=== PATIENT | female | born 1935 | race Caucasian/White ===

== ENCOUNTER 2021-02-18 11:29 | Observation (INO) ==
--- NOTE | 2021-02-18 12:06 | Emergency Department Note ---
History of Present Illness General Chief complaint: Infection, Wound Stated complaint: cellulitis Time Seen by Provider: 02/18/21 11:46 Source: patient and old records reviewed Mode of arrival: EMS Limitations: no limitations History of Present Illness This patient is an 86-year-old female who was sent over for evaluation for possible cellulitis. She was treated for left leg cellulitis with Keflex and despite that both legs are now red. The patient does have some dementia according to chart but denies any complaints. Denies trauma. Her legs do seem to hurt on exam. Denies chest pain or shortness of breath or abdominal pain. No fever chills or cough. Home Medications Medication Instructions Recorded Confirmed Type aspirin 81 mg PO QAM 09/20/19 02/18/21 History donepezil [Aricept] 5 mg PO QAM 09/20/19 02/18/21 History losartan 50 mg PO QAM 09/20/19 02/18/21 History memantine [Namenda] 5 mg PO QAM 09/20/19 02/18/21 History cephalexin [Keflex] 250 mg PO TID 02/18/21 02/18/21 History loperamide [Anti-Diarrheal 2 mg PO Q4H PRN 02/18/21 02/18/21 History (loperamide)] lorazepam 1 mg PO Q6H PRN 02/18/21 02/18/21 History Allergies Allergy/AdvReac Type Severity Reaction Status Date / Time Sulfa (Sulfonamide Allergy Mild HIVES, Verified 02/18/21 13:12 Antibiotics) INTESTINAL PAIN alendronate sodium Allergy Unknown Verified 02/18/21 13:12 atorvastatin Allergy Unknown Verified 02/18/21 13:12 clarithromycin Allergy Unknown Verified 02/18/21 13:12 colesevelam Allergy Unknown Verified 02/18/21 13:12 ezetimibe Allergy Unknown Verified 02/18/21 13:12 gemfibrozil Allergy Unknown Verified 02/18/21 13:12 levofloxacin Allergy Unknown HIVES Verified 02/18/21 13:12 lisinopril Allergy Unknown Verified 02/18/21 13:12 Quinolones Allergy Unknown Verified 02/18/21 13:12 risedronate sodium Allergy Unknown Verified 02/18/21 13:12 simvastatin Allergy Unknown Verified 02/18/21 13:12 Past Med/Surg History Medical History Dementia DJD (degenerative joint disease) History of abnormal electrocardiogram History of pneumonia History of recurrent UTI (urinary tract infection) HLD (hyperlipidemia) HTN (hypertension) Left cataract Myalgia Right cataract Surgical History History of bronchoscopy History of hip replacement Family History Other Family history unobtainable Social History Smoking Status: Former smoker Hx Alcohol Use: No Hx Substance Use: No Preferred Language: Azeri Communication Ability: Effective Crushing 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 Required: No Beliefs That Will Affect Care: Hoahaoism Hoahaoism Beliefs: Congregation marital status: Current Living Situation: Residential Other Information That Helps Us Care for You: No Feels Safe at Home: Yes Safety Concerns: Afraid for Self Assistive Devices: Glasses, Hearing Aid - Bilateral and Walker Review of Systems Unobtainable due to cognitive status (She seems answers questions appropriately but vaguely and due to her dementia is unable to give a reliable review of systems) Physical Exam Vital Signs Vital Signs - 24 hr 02/18/21 16:32 02/18/21 16:33 02/18/21 17:00 Temperature Temperature Source Pulse Rate 67 Pulse Rate [Finger] Pulse Rate from SpO2 Sensor 69 66 65 Respiratory Rate 20 20 18 Blood Pressure 163/102 H Blood Pressure [Right Arm] Blood Pressure Mean 122 Blood Pressure Mean [Right Arm] Blood Pressure Position [Right Arm] Pulse Oximetry 96 95 95 Oxygen Delivery Method 02/18/21 17:01 02/18/21 17:31 02/18/21 22:33 Temperature 37.3 C Temperature Source Oral Pulse Rate 66 Pulse Rate [Finger] 73 Pulse Rate from SpO2 Sensor 68 66 Respiratory Rate 20 22 17 Blood Pressure 162/56 H 168/77 H Blood Pressure [Right Arm] 144/71 H Blood Pressure Mean 91 107 Blood Pressure Mean [Right Arm] 95 Blood Pressure Position [Right Arm] Lying Pulse Oximetry 95 95 92 Oxygen Delivery Method Room Air 02/19/21 08:23 Temperature 36.8 C Temperature Source Oral Pulse Rate Pulse Rate [Finger] 64 Pulse Rate from SpO2 Sensor Respiratory Rate 18 Blood Pressure Blood Pressure [Right Arm] 161/74 H Blood Pressure Mean Blood Pressure Mean [Right Arm] 103 Blood Pressure Position [Right Arm] Semi-fowlers Pulse Oximetry 93 Oxygen Delivery Method Room Air General: Well developed well nourished older female who appears in no acute distress, breathing comfortably on room air. Normal speech HEENT: Normal cephalic atraumatic. Pupils are equal round and reactive to light. Extraocular movements are intact. Oropharynx is pink with moist mucous membranes. No swelling of the mouth lips or tongue. Neck: Supple with a midline trachea. No meningeal signs or stiffness, no JVD or bruits. No Stridor. Chest: Clear to auscultation bilaterally. No wheezes or rhonchi. No increased work of breathing. Heart: Regular rate and rhythm without murmurs or gallops. Abdomen: Soft nontender, nondistended without rebound guarding or rigidity. Extremities: No cyanosis clubbing. She has bilateral lower extremity swelling with some pinkish discoloration in the shins bilaterally. They seem to be mildly tender. She has good capillary refill and blood flow to the feet. Spine/Back. Non tender to palpation. No CVA tenderness Skin: Good turgor without rashes. Neurologic exam: Cranial nerves two through 12 are intact. Motor and sensation are intact and symmetrical throughout. Course Administered Medications Aspirin (Aspirin 81 Mg Ectab) [facility] [place] Stop: 03/21/21 08:59 Last Admin: 02/19/21 08:06 Dose: 81 mg Documented by: [id number] Donepezil HCl (Donepezil Hcl 5 Mg Tab) [facility] [place] Stop: 03/21/21 08:59 Last Admin: 02/19/21 08:07 Dose: 5 mg Documented by: [id number] Enoxaparin Sodium (Enoxaparin Inj 40 Mg/0.4 Ml Syr) 40 mg SQ Q24H [facility] Stop: 03/20/21 20:59 Last Admin: 02/18/21 21:06 Dose: 40 mg Documented by: [id number] Ceftriaxone Sodium 2,000 mg/ (Dextrose) 70 mls @ 100 mls/hr IV Q24H [facility]; Protocol Stop: 02/25/21 19:29 Last Infusion: 02/18/21 22:01 Dose: 0 mls/hr Documented by: [id number] Admin: 02/18/21 20:17 Dose: 100 mls/hr Documented by: [id number] Doxycycline Hyclate 100 mg/ (Dextrose) 110 mls @ 50 mls/hr IV Q12H [facility] Stop: 02/25/21 19:59 Last Infusion: 02/19/21 10:24 Dose: 0 mls/hr Documented by: [id number] Admin: 02/19/21 08:12 Dose: 50 mls/hr Documented by: [id number] Infusion: 02/19/21 05:34 Dose: 0 mls/hr Documented by: [id number] Infusion: 02/18/21 22:50 Dose: 0 mls/hr Documented by: [id number] Admin: 02/18/21 21:06 Dose: 50 mls/hr Documented by: [id number] Losartan Potassium (Losartan Potassium 50 Mg Tab) 50 mg PO QAM [facility] Stop: 03/21/21 08:59 Last Admin: 02/19/21 08:07 Dose: 50 mg Documented by: [id number] Memantine (Memantine Hcl 5 Mg Tab) 5 mg PO QAM [facility] Stop: 03/21/21 08:59 Last Admin: 02/19/21 08:07 Dose: 5 mg Documented by: [id number] Discontinued Medications Ceftriaxone Sodium (Rocephin) 2,000 mg in 70 mls @ 140 mls/hr IV NOW STA Stop: 02/18/21 14:40 Last Infusion: 02/18/21 15:09 Dose: 0 mls/hr Documented by: [id number] Admin: 02/18/21 14:37 Dose: 140 mls/hr Documented by: [id number] Medical Decision Making Differential Diagnosis Cellulitis, sepsis, venous stasis, DVT, electrolyte or metabolic abnormality, cardiac disease, CHF Medical Records Attestation: I reviewed the patient's medical records. Home Medications Current Medication List: was personally reviewed by me Laboratory Data Attestation: I reviewed the patient's lab results. Result diagrams: 02/19/21 07:20 02/19/21 07:20 Lab Results 02/18/21 02/18/21 02/18/21 Range/Units 12:27 12:27 12:27 WBC 7.17 (4.8-10.8) K/uL RBC 4.27 (4.2-5.4) M/uL Hgb 13.4 (12.0-16.0) g/dL Hct 41.8 (37-47) % MCV 97.9 (80-100) fL MCH 31.4 (25-34) pg MCHC 32.1 (32-36) g/dL RDW Std Deviation 51.1 H (36.4-46.3) fL RDW Coeff of Torri 14.3 (11.5-14.5) % Plt Count 242 (130-400) K/uL MPV 10.9 H (7.4-10.4) fL Immature Gran % (Auto) 0.3 % Neut % (Auto) 57.2 % Lymph % (Auto) 31.5 % [place] % (Auto) 8.1 % Eos % (Auto) 2.5 % Baso % (Auto) 0.4 % Neut # (Auto) 4.10 (1.4-6.5) K/uL Lymph # (Auto) 2.26 (1.2-3.4) K/uL [place] # (Auto) 0.58 (0.11-0.59) K/uL Eos # (Auto) 0.18 (0-0.5) K/uL Baso # (Auto) 0.03 (0-0.2) K/uL Immature Gran # (Auto) 0.02 (0.00-0.02) K/uL PT Cancelled INR Cancelled APTT Cancelled PTT Ratio Cancelled Sodium 142 (136-145) mmol/L Potassium (3.5-5.1) mmol/L Chloride 110 H (98-107) mmol/L Carbon Dioxide 26 (21-32) mmol/L Anion Gap 5.0 (3-11) BUN 20 H (7-18) mg/dl Creatinine 0.82 (0.6-1.2) mg/dl Est Cr Clr Drug Dosing 52.3 ml/min Est GFR ( Amer) 74.6 ml/min Est GFR (Non-Af Amer) 64.3 ml/min BUN/Creatinine Ratio 24.5 H (10-20) Glucose 95 (70-99) mg/dl Lactate (0.4-2.0) mmol/L Calcium 8.8 (8.5-10.1) mg/dl Magnesium (1.8-2.4) mg/dl Total Bilirubin 0.4 (0.2-1) mg/dl AST (15-37) U/L ALT 22 (12-78) U/L Alkaline Phosphatase 88 (45-117) U/L Troponin I < 0.015 (0-0.045) ng/ml NT-Pro-B Natriuret Pep 156 (0-1800) pg/ml Total Protein 7.4 (6.4-8.2) gm/dl Albumin 3.0 L (3.4-5.0) gm/dl Globulin 4.4 H (2.5-4.0) gm/dl Albumin/Globulin Ratio 0.7 L (0.9-2) Urine Color Urine Appearance (Clear) Urine pH (4.5-7.5) Ur Specific [place] (1.000-1.030) Urine Protein (Negative) Urine Glucose (UA) (Negative) Urine Ketones (Negative) Urine Blood (Negative) Urine Nitrite (Negative) Urine Bilirubin (Negative) Urine Urobilinogen (Negative) Ur Leukocyte Esterase (Negative) Nasal Screen MRSA (PCR) (Negative) COVID-19 Eval Order SARS-CoV-2 (PCR) (Negative) 02/18/21 02/18/21 02/18/21 Range/Units 12:27 13:26 13:26 WBC (4.8-10.8) K/uL RBC (4.2-5.4) M/uL Hgb (12.0-16.0) g/dL Hct (37-47) % MCV (80-100) fL MCH (25-34) pg MCHC (32-36) g/dL RDW Std Deviation (36.4-46.3) fL RDW Coeff of Torri (11.5-14.5) % Plt Count (130-400) K/uL MPV (7.4-10.4) fL Immature Gran % (Auto) % Neut % (Auto) % Lymph % (Auto) % [place] % (Auto) % Eos % (Auto) % Baso % (Auto) % Neut # (Auto) (1.4-6.5) K/uL Lymph # (Auto) (1.2-3.4) K/uL [place] # (Auto) (0.11-0.59) K/uL Eos # (Auto) (0-0.5) K/uL Baso # (Auto) (0-0.2) K/uL Immature Gran # (Auto) (0.00-0.02) K/uL PT 10.3 INR 1.0 APTT 24.8 PTT Ratio 0.9 Sodium (136-145) mmol/L Potassium (3.5-5.1) mmol/L Chloride (98-107) mmol/L Carbon Dioxide (21-32) mmol/L Anion Gap (3-11) BUN (7-18) mg/dl Creatinine (0.6-1.2) mg/dl Est Cr Clr Drug Dosing ml/min Est GFR ( Amer) ml/min Est GFR (Non-Af Amer) ml/min BUN/Creatinine Ratio (10-20) Glucose (70-99) mg/dl Lactate 1.5 (0.4-2.0) mmol/L Calcium (8.5-10.1) mg/dl Magnesium (1.8-2.4) mg/dl Total Bilirubin (0.2-1) mg/dl AST (15-37) U/L ALT (12-78) U/L Alkaline Phosphatase (45-117) U/L Troponin I (0-0.045) ng/ml NT-Pro-B Natriuret Pep (0-1800) pg/ml Total Protein (6.4-8.2) gm/dl Albumin (3.4-5.0) gm/dl Globulin (2.5-4.0) gm/dl Albumin/Globulin Ratio (0.9-2) Urine Color Yellow Urine Appearance Clear (Clear) Urine pH 6.5 (4.5-7.5) Ur Specific [place] 1.011 (1.000-1.030) Urine Protein Negative (Negative) Urine Glucose (UA) Negative (Negative) Urine Ketones Negative (Negative) Urine Blood Negative (Negative) Urine Nitrite Negative (Negative) Urine Bilirubin Negative (Negative) Urine Urobilinogen Negative (Negative) Ur Leukocyte Esterase Negative (Negative) Nasal Screen MRSA (PCR) (Negative) COVID-19 Eval Order SARS-CoV-2 (PCR) (Negative) 02/18/21 02/18/21 02/18/21 Range/Units 13:27 15:15 15:15 WBC (4.8-10.8) K/uL RBC (4.2-5.4) M/uL Hgb (12.0-16.0) g/dL Hct (37-47) % MCV (80-100) fL MCH (25-34) pg MCHC (32-36) g/dL RDW Std Deviation (36.4-46.3) fL RDW Coeff of Torri (11.5-14.5) % Plt Count (130-400) K/uL MPV (7.4-10.4) fL Immature Gran % (Auto) % Neut % (Auto) % Lymph % (Auto) % [place] % (Auto) % Eos % (Auto) % Baso % (Auto) % Neut # (Auto) (1.4-6.5) K/uL Lymph # (Auto) (1.2-3.4) K/uL [place] # (Auto) (0.11-0.59) K/uL Eos # (Auto) (0-0.5) K/uL Baso # (Auto) (0-0.2) K/uL Immature Gran # (Auto) (0.00-0.02) K/uL PT INR APTT PTT Ratio Sodium (136-145) mmol/L Potassium 4.0 (3.5-5.1) mmol/L Chloride (98-107) mmol/L Carbon Dioxide (21-32) mmol/L Anion Gap (3-11) BUN (7-18) mg/dl Creatinine (0.6-1.2) mg/dl Est Cr Clr Drug Dosing ml/min Est GFR ( Amer) ml/min Est GFR (Non-Af Amer) ml/min BUN/Creatinine Ratio (10-20) Glucose (70-99) mg/dl Lactate (0.4-2.0) mmol/L Calcium (8.5-10.1) mg/dl Magnesium 2.3 (1.8-2.4) mg/dl Total Bilirubin (0.2-1) mg/dl AST 15 (15-37) U/L ALT (12-78) U/L Alkaline Phosphatase (45-117) U/L Troponin I (0-0.045) ng/ml NT-Pro-B Natriuret Pep (0-1800) pg/ml Total Protein (6.4-8.2) gm/dl Albumin (3.4-5.0) gm/dl Globulin (2.5-4.0) gm/dl Albumin/Globulin Ratio (0.9-2) Urine Color Urine Appearance (Clear) Urine pH (4.5-7.5) Ur Specific [place] (1.000-1.030) Urine Protein (Negative) Urine Glucose (UA) (Negative) Urine Ketones (Negative) Urine Blood (Negative) Urine Nitrite (Negative) Urine Bilirubin (Negative) Urine Urobilinogen (Negative) Ur Leukocyte Esterase (Negative) Nasal Screen MRSA (PCR) (Negative) COVID-19 Eval Order Covid19 at [facility] SARS-CoV-2 (PCR) NEGATIVE (Negative) 02/18/21 02/19/21 02/19/21 Range/Units Unknown 07:20 07:20 WBC 5.70 (4.8-10.8) K/uL RBC 4.00 L (4.2-5.4) M/uL Hgb 12.6 (12.0-16.0) g/dL Hct 38.5 (37-47) % MCV 96.3 (80-100) fL MCH 31.5 (25-34) pg MCHC 32.7 (32-36) g/dL RDW Std Deviation 49.5 H (36.4-46.3) fL RDW Coeff of Torri 14.0 (11.5-14.5) % Plt Count 269 (130-400) K/uL MPV 10.9 H (7.4-10.4) fL Immature Gran % (Auto) % Neut % (Auto) % Lymph % (Auto) % [place] % (Auto) % Eos % (Auto) % Baso % (Auto) % Neut # (Auto) (1.4-6.5) K/uL Lymph # (Auto) (1.2-3.4) K/uL [place] # (Auto) (0.11-0.59) K/uL Eos # (Auto) (0-0.5) K/uL Baso # (Auto) (0-0.2) K/uL Immature Gran # (Auto) (0.00-0.02) K/uL PT INR APTT PTT Ratio Sodium 143 (136-145) mmol/L Potassium 3.9 (3.5-5.1) mmol/L Chloride 112 H (98-107) mmol/L Carbon Dioxide 25 (21-32) mmol/L Anion Gap 6.0 (3-11) BUN 17 (7-18) mg/dl Creatinine 0.69 (0.6-1.2) mg/dl Est Cr Clr Drug Dosing 62.2 ml/min Est GFR ( Amer) 90.7 ml/min Est GFR (Non-Af Amer) 78.3 ml/min BUN/Creatinine Ratio 24.6 H (10-20) Glucose 87 (70-99) mg/dl Lactate (0.4-2.0) mmol/L Calcium 9.1 (8.5-10.1) mg/dl Magnesium (1.8-2.4) mg/dl Total Bilirubin (0.2-1) mg/dl AST (15-37) U/L ALT (12-78) U/L Alkaline Phosphatase (45-117) U/L Troponin I (0-0.045) ng/ml NT-Pro-B Natriuret Pep (0-1800) pg/ml Total Protein (6.4-8.2) gm/dl Albumin (3.4-5.0) gm/dl Globulin (2.5-4.0) gm/dl Albumin/Globulin Ratio (0.9-2) Urine Color Urine Appearance (Clear) Urine pH (4.5-7.5) Ur Specific [place] (1.000-1.030) Urine Protein (Negative) Urine Glucose (UA) (Negative) Urine Ketones (Negative) Urine Blood (Negative) Urine Nitrite (Negative) Urine Bilirubin (Negative) Urine Urobilinogen (Negative) Ur Leukocyte Esterase (Negative) Nasal Screen MRSA (PCR) Negative (Negative) COVID-19 Eval Order SARS-CoV-2 (PCR) (Negative) Imaging Data Attestation: I personally reviewed and interpreted this imaging study as foll ows: My Impression: Chest x-rayno acute infiltrate, failure, pneumothorax seen Radiologist's Impression: Chest X-Ray 02/18/21 11:57 SINGLE VIEW CHEST CLINICAL HISTORY: Sepsis. FINDINGS: An AP, portable, upright chest radiograph is compared to study dated 09/20/2019 and correlated with chest CT dated 07/25/2008. The heart is mildly en larged noting atherosclerotic calcification of the thoracic aorta. Chronic interstitial thickening is similar to previous. There is bibasilar scarring/atelectasis. No airspace consolidation or large pleural effusion is identified. Apical scarring is noted. No pneumothorax is seen. The skeletal structures are osteopenic. The bony thorax is grossly intact. IMPRESSION: Cardiomegaly with no acute cardiopulmonary abnormality. ACT 112: Negative or not required by law. Electronically signed by: Nick Lozano M.D. 02/18/2021 12:20 PM Venous Doppler Study 02/18/21 14:19 US venous doppler LE BI CLINICAL HISTORY: eval for trauma COMPARISON STUDY: No previous studies for comparison. FINDINGS: Real-time and color flow Doppler imaging were performed. Flow was seen within the femoral, popliteal and calf veins with no intraluminal thrombus demonstrated. The saphenous vein is patent. Soft tissue edema is seen. IMPRESSION: No evidence of deep venous thrombosis. ACT 112: Negative or not required by law. The above report was generated using voice recognition software. It may contain grammatical, syntax or spelling errors. Electronically signed by: Antonieta Villagomez DO 02/18/2021 3:14 PM ECG Data Attestation: I personally reviewed and interpreted this ECG as follows: Indication: + weakness and + other (Lower extremity edema) Rate (beats per minute): 65 Rhythm: + normal sinus ECG Intervals/blocks: + Left bundle branch block, + Normal QT and + Normal CT ECG [place]: + Normal ECG ST segments: + Normal ST segments ECG Findings: no PACs and no PVCs Comparison ECG Date: from (09/20/19) Change: no significant change MDM Narrative This patient comes in as described above. 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 She is here for treatment evaluation of bilateral lower extremity discoloration and swelling. She has been on Keflex as an outpatient. IV access was established and blood work was obtained. She has sepsis type work-up. She was reassessed frequently. She has no fever or white count to suggest infection. She has no significant electrolyte or metabolic abnormality. Chest x-ray was clear. EKG shows a baseline left bundle branch block. I did order ultrasound as well. This may be vascular insufficiency but it started on one leg and now is on both she does have some scabs there certainly could be an infectious component I did give her IV antibiotics. He was Covid tested and I did consult the [facility] hospitalist to see her in the ER for these measures Continuous cardiac monitoring: Order was placed in EMR for continuous cardiac monitoring. The patient was noted to be normal sinus rhythm with a rate of 60 upon my evaluation Impression & Plan Bilateral lower extremity edema, Bilateral cellulitis of lower leg, Dementia, Lab test negative for COVID-19 virus Discharge Plan Visit Data Chief Complaint: Infection, Wound Stated Complaint: cellulitis ED Provider: Demond Muñiz Discharge Problem: Bilateral lower extremity edema, Bilateral cellulitis of lower leg, Dementia, Lab test negative for COVID-19 virus Patient Disposition: Still a Patient Discharge Instructions Interventions: ED Discharge Assessment Last Done: 02/18/21 18:19 Discharge Problem: Dementia Qualifiers: Dementia type: unspecified type Dementia behavioral disturbance: without behavioral disturbance Qualified Code(s): F03.90 - Unspecified dementia without behavioral disturbance
--- NOTE | 2021-02-18 12:21 | XRay Report ---
SINGLE VIEW CHEST CLINICAL HISTORY: Sepsis. FINDINGS: An AP, portable, upright chest radiograph is compared to study dated 09/20/2019 and correlat ed with chest CT dated 07/25/2008. The heart is mildly enlarged noting atherosclerotic calcification of the thoracic aorta. Chronic interstitial thickening is similar to previous. There is bibasilar sca rring/atelectasis. No airspace consolidation or large pleural effusion is identified. Apical scarring is noted. No pneumothorax is seen. The skeletal structures are osteopenic. The bony thorax is grossl y intact. IMPRESSION: Cardiomegaly with no acute cardiopulmonary abnormality. ACT 112: Negative or not required by law. Electronically signed by: Nick Lozano M.D. 02/18/2021 12:20 PM
[2021-02-18 12:36] LABS: Basophils # (auto) 0.03 K/uL (0-0.2); Basophils % (auto) 0.4 %; Eosinophils # (auto) 0.18 K/uL (0-0.5); Eosinophils % (auto) 2.5 %; Hematocrit (blood only) 41.8 % (37-47); Hemoglobin 13.4 g/dL (12.0-16.0); Immature Granulocytes # (auto) 0.02 K/uL (0.00-0.02); Immature Granulocytes % (auto) 0.3 %; Lymphocytes # (auto) 2.26 K/uL (1.2-3.4); Lymphocytes % (auto) 31.5 %; Mean Corpuscular Hemoglobin 31.4 pg (25-34); Mean Corpuscular Hgb Conc 32.1 g/dL (32-36); Mean Corpuscular Volume 97.9 fL (80-100); Mean Platelet Volume 10.9 fL (7.4-10.4); Monocytes # (auto) 0.58 K/uL (0.11-0.59); Monocytes % (auto) 8.1 %; Neutrophils % (auto) 57.2 %; Platelet Count 242 K/uL (130-400); RDW Coefficient of Variation 14.3 % (11.5-14.5); RDW Standard Deviation 51.1 fL (36.4-46.3); Red Blood Count 4.27 M/uL (4.2-5.4); White Blood Count 7.17 K/uL (4.8-10.8)
[2021-02-18 12:37] LABS: Appearance Urine Clear (Clear); Bilirubin Urine Negative (Negative); Blood Urine Negative (Negative); Color Urine Yellow; Glucose Urine UA Negative (Negative); Ketones Urine Negative (Negative); Leukocyte Esterase Urine Negative (Negative); Nitrite Urine Negative (Negative); Protein Urine Negative (Negative); Specific Gravity Urine 1.011 (1.000-1.030); Urobilinogen Urine Negative (Negative); pH Urine 6.5 (4.5-7.5)
[2021-02-18 13:04] LABS: Alanine Aminotransferase 22 U/L (12-78); Albumin Globulin Ratio 0.7 (0.9-2); Alkaline Phosphatase 88 U/L (45-117); BUN Creatinine Ratio 24.5 (10-20); Bilirubin,Total 0.4 mg/dl (0.2-1); Blood Urea Nitrogen 20 mg/dl (7-18); Calcium 8.8 mg/dl (8.5-10.1); Carbon Dioxide 26 mmol/L (21-32); Chloride 110 mmol/L (98-107); Creatinine Clr Calc Pharmacy 52.3 ml/min; Est GFR (African American) 74.6 ml/min; Est GFR (Non-African American) 64.3 ml/min; Globulin 4.4 gm/dl (2.5-4.0); Glucose 95 mg/dl (70-99); NT Pro B Type Natriuretic Pept 156 pg/ml (0-1800); Sodium 142 mmol/L (136-145); Total Protein 7.4 gm/dl (6.4-8.2); Troponin I < 0.015 ng/ml (0-0.045)
[2021-02-18 13:51] LABS: Partial Thromboplastin Ratio 0.9; Partial Thromboplastin Time 24.8 Seconds (21.0-31.0); Prothrombin Time 10.3 Seconds (9.0-12.0)
[2021-02-18 13:56] LABS: Magnesium 2.3 mg/dl (1.8-2.4)
[2021-02-18] MEDS ORDERED: cefTRIAXone SODIUM 2,000 MG/70 ML BAG IV STA (14:11)
--- NOTE | 2021-02-18 15:16 | Ultrasound Report ---
US venous doppler LE BI CLINICAL HISTORY: eval for trauma COMPARISON STUDY: No previous studies for comparison. FINDINGS: Real-time and color flow Doppler imaging were performed. Flow was seen within the femoral, popliteal and calf veins with no intraluminal thrombus demonstrated. The saphenous vein is patent. Soft tissue edema is seen. IMPRESSION: No evidence of deep venous thrombosis. ACT 112: Negative or not required by law. The above report was generated using voice recognition software. It may contain grammatical, syntax o r spelling errors. Electronically signed by: Antonieta Villagomez DO 02/18/2021 3:14 PM
--- NOTE | 2021-02-18 15:39 | XRay Report ---
SINGLE VIEW CHEST CLINICAL HISTORY: Covid. FINDINGS: An AP, portable, upright chest radiograph is compared to study performed earlier the same d ay 02/18/2021 and correlated with chest CT dated 07/25/2008. The heart is mildly enlarged noting ather osclerotic calcification of the thoracic aorta. Chronic interstitial thickening is similar to previou s. There is bibasilar scarring/atelectasis. No airspace consolidation or large pleural effusion is id entified. Apical scarring is noted. No pneumothorax is seen. The skeletal structures are osteopenic. The bony thorax is grossly intact. IMPRESSION: Cardiomegaly with no acute cardiopulmonary abnormality. ACT 112: Negative or not required by law. Electronically signed by: Nikc Lozano M.D. 02/18/2021 3:38 PM
--- NOTE | 2021-02-18 16:37 | History & Physical Report ---
Date of Service February 18, 2021 Assessment & Plan (1) Bilateral cellulitis of lower leg: -Admit to [facility] -Patient presenting from [facility] for evaluation of bilateral lower extremity erythema and edema -Was being treated with cephalexin -In the ED, afebrile, no leukocytosis -BL LE Doppler negative for DVT -S/p ceftriaxone in the ED, will continue with ceftriaxone and add doxycycline -Follow blood cultures (2) HTN (hypertension): -BP controlled, continue losartan (3) Dementia: -Continue donepezil and memantine (4) DVT prophylaxis: -SQ Lovenox History of Present Illness Chief Complaint: Lower extremity redness and swelling Primary Care Provider: [facility] 86-year-[facility] female with PMH HTN, dementia, and other problems listed below who presents the ED from [facility] for evaluation of bilateral lower extremity redness and swelling. Patient has underlying dementia therefore history is limited from her. Per the staff at [facility], 4 days ago, patient developed redness and swelling to the left lower extremity. She was started on cephalexin. Left lower extremity redness and swelling has been getting worse and today staff noted redness and swelling to the right lower extremity. No reported fevers. No known injury or trauma to the legs. No other symptoms reported. In the ED, patient is hemodynamically stable, afebrile, no leukocytosis. BL LE Doppler negative for DVT. Patient was given IV ceftriaxone. Allergies Allergy/AdvReac Type Severity Reaction Status Date / Time Sulfa (Sulfonamide Allergy Mild HIVES, Verified 02/18/21 13:12 Antibiotics) INTESTINAL PAIN alendronate sodium Allergy Unknown Verified 02/18/21 13:12 atorvastatin Allergy Unknown Verified 02/18/21 13:12 clarithromycin Allergy Unknown Verified 02/18/21 13:12 colesevelam Allergy Unknown Verified 02/18/21 13:12 ezetimibe Allergy Unknown Verified 02/18/21 13:12 gemfibrozil Allergy Unknown Verified 02/18/21 13:12 levofloxacin Allergy Unknown HIVES Verified 02/18/21 13:12 lisinopril Allergy Unknown Verified 02/18/21 13:12 Quinolones Allergy Unknown Verified 02/18/21 13:12 risedronate sodium Allergy Unknown Verified 02/18/21 13:12 simvastatin Allergy Unknown Verified 02/18/21 13:12 Home Medications Medication Instructions Recorded Confirmed Type aspirin 81 mg PO QAM 09/20/19 02/18/21 History donepezil [Aricept] 5 mg PO QAM 09/20/19 02/18/21 History losartan 50 mg PO QAM 09/20/19 02/18/21 History memantine [Namenda] 5 mg PO QAM 09/20/19 02/18/21 History cephalexin [Keflex] 250 mg PO TID 02/18/21 02/18/21 History loperamide [Anti-Diarrheal 2 mg PO Q4H PRN 02/18/21 02/18/21 History (loperamide)] lorazepam 1 mg PO Q6H PRN 02/18/21 02/18/21 History Past Med/Surg History Medical History Dementia DJD (degenerative joint disease) History of abnormal electrocardiogram History of pneumonia History of recurrent UTI (urinary tract infection) HLD (hyperlipidemia) HTN (hypertension) Left cataract Myalgia Right cataract Surgical History History of bronchoscopy History of hip replacement Family History Other Family history unobtainable Social History Smoking Status: Former smoker Hx Alcohol Use: No Hx Substance Use: No Preferred Language: Nepali Communication Ability: Effective Mother Repairer Required: No Beliefs That Will Affect Care: Jainism Jainism Beliefs: Faith Current Living Situation: Group Home Other Information That Helps Us Care for You: No Feels Safe at Home: Yes Safety Concerns: Afraid for Self Assistive Devices: Glasses, Hearing Aid - Bilateral and Walker Review of Systems Review of Systems: Unobtainable due to cognitive status Physical Exam Constitutional: WD/WN, vitals as above Eyes: PERRL, conjunctivae normal, anicteric sclerae ENMT: external ear and nose normal, oropharynx normal Respiratory: normal respiratory effort, lungs clear to auscultation Cardiovascular: Rate/Rhythm: regular rate and regular rhythm Vessels: normal peripheral pulses Extremities: + edema (+2 edema BLE) Gastrointestinal (Abdomen): normal bowel sounds, soft, nontender, no hepatosplenomegaly Musculoskeletal: no cyanosis or clubbing, extremities motor strength 5/5 Skin: no rashes, warm and dry BL LE erythematous and very warm to the touch. Some scattered, dried abrasions noted bilaterally Neurologic: PERRL, EOMI, accommodation nl, no face palsy, no dysarthria Psychiatric: Orientation: alert and oriented to person; + not oriented to place and + not oriented to time Insight: + limited insight Results & Data Results & Data ([facility]) Vital Signs (Past 12 Hours) Vital Signs Temp Pulse Resp BP Pulse Ox 02/18/21 16:32 67 20 163/102 H 96 02/18/21 14:30 62 20 145/77 H 95 02/18/21 14:00 62 20 146/56 H 94 02/18/21 13:30 61 19 141/64 H 95 02/18/21 13:00 63 19 115/61 93 02/18/21 12:31 61 23 130/63 95 02/18/21 12:00 64 20 139/77 97 02/18/21 11:36 36.4 C L 76 20 95 02/18/21 11:33 66 20 163/85 H 95 Laboratory Results Short CBC 02/18/21 Range/Units 12:27 WBC 7.17 (4.8-10.8) K/uL Hgb 13.4 (12.0-16.0) g/dL Hct 41.8 (37-47) % Plt Count 242 (130-400) K/uL BMP 02/18/21 02/18/21 12:27 13:27 Sodium 142 Potassium 4.0 Chloride 110 H Carbon Dioxide 26 BUN 20 H Creatinine 0.82 Glucose 95 Calcium 8.8 Cardiac Enzymes 02/18/21 Range/Units 12:27 Troponin I < 0.015 (0-0.045) ng/ml Liver Function 02/18/21 02/18/21 Range/Units 12:27 13:27 Total Bilirubin 0.4 (0.2-1) mg/dl AST 15 (15-37) U/L ALT 22 (12-78) U/L Alkaline Phosphatase 88 (45-117) U/L Albumin 3.0 L (3.4-5.0) gm/dl Urine 02/18/21 Range/Units 12:27 Urine Color Yellow Urine Appearance Clear (Clear) Urine pH 6.5 (4.5-7.5) Ur Specific [place] 1.011 (1.000-1.030) Urine Protein Negative (Negative) Urine Glucose (UA) Negative (Negative) Diagnostic Findings Chest X-Ray 02/18/21 11:57 SINGLE VIEW CHEST CLINICAL HISTORY: Sepsis. FINDINGS: An AP, portable, upright chest radiograph is compared to study dated 09/20/2019 and correlated with chest CT dated 07/25/2008. The heart is mildly enlarged noting atherosclerotic calcification of the thoracic aorta. Chronic interstitial thickening is similar to previous. There is bibasilar scarring/atelectasis. No airspace consolidation or large pleural effusion is identified. Apical scarring is noted. No pneumothorax is seen. The skeletal structures are osteopenic. The bony thorax is grossly intact. IMPRESSION: Cardiomegaly with no acute cardiopulmonary abnormality. ACT 112: Negative or not required by law. Electronically signed by: Nick Lozano M.D. 02/18/2021 12:20 PM Venous Doppler Study 02/18/21 14:19 US venous doppler LE BI CLINICAL HISTORY: eval for trauma COMPARISON STUDY: No previous studies for comparison. FINDINGS: Real-time and color flow Doppler imaging were performed. Flow was seen within the femoral, popliteal and calf veins with no intraluminal thrombus demo nstrated. The saphenous vein is patent. Soft tissue edema is seen. IMPRESSION: No evidence of deep venous thrombosis. ACT 112: Negative or not required by law. The above report was generated using voice recognition software. It may contain grammatical, syntax or spelling errors. Electronically signed by: Antonieta Villagomez DO 02/18/2021 3:14 PM Chest X-Ray 02/18/21 15:00 SINGLE VIEW CHEST CLINICAL HISTORY: Covid. FINDINGS: An AP, portable, upright chest radiograph is compared to study performed earlier the same day 02/18/2021 and correlated with chest CT dated 07/25/2008. The heart is mildly enlarged noting atherosclerotic calcification of the thoracic aorta. Chronic interstitial thickening is similar to previous. There is bibasilar scarring/atelectasis. No airspace consolidation or large pleural effusion is identified. Apical scarring is noted. No pneumothorax is seen. The skeletal structures are osteopenic. The bony thorax is grossly intact. IMPRESSION: Cardiomegaly with no acute cardiopulmonary abnormality. ACT 112: Negative or not required by law. Electronically signed by: Nick Lozano M.D. 02/18/2021 3:38 PM Code Status & VTE Plan Code Status Patient is a full code as per my discussion with the staff at [facility]. I attempted to call patient's daughter, Shruthi, however call went directly to voicemail. VTE Prophylaxis Plan VTE Prophylaxis will be ordered: Yes Supervising Physician Co-Signing Physician Notes Patient seen and examined by me, care coordinated with HUGH [facility], please refer to her note above for further detail. Patient is an 86-year-old female with history of dementia, who now presents from [facility] with bilateral lower extremity edema and redness, cellulitis. Empiric treatment with p.o. antibiotics unfortunately failed. DVT was ruled out in the ED. Started on IV Rocephin, will add IV doxycycline. Patient is awake however pleasantly confused. She is able to answer most questions appropriately regarding review of systems however not as good as situation. Lungs are clear to auscultation b/l w/o any wheezing rhonchi or crackles. Heart sounds regular. Abdomen soft, nontender nondistended. She is moving all 4 extremities spontaneously and without difficulty. There is no facial asymmetry, speech is fluent. Both lower extremities unfortunately have edema about 2+, and dark pink discoloration. Warm to touch. Small scattered abrasions noted. Some tenderness with touch as well. Continue IV antibiotics as above, follow blood cultures. Cally Shi MD (1) Dementia Dementia behavioral disturbance: without behavioral disturbance Dementia type: unspecified type Qualified Code(s): F03.90 - Unspecified dementia without behavioral disturbance
--- NOTE | 2021-02-18 17:16 | Electrocardiogram Report ---
Test Reason : Blood Pressure : / mmHG Vent. Rate : 065 BPM Atrial Rate : 065 BPM P-R Int : 202 ms QRS Dur : 134 ms QT Int : 456 ms P-R-T Axes : 070 -50 096 degrees QTc Int : 474 ms Poor data quality, interpretation may be adversely affected Normal sinus rhythm with sinus arrhythmia Left axis deviation Left bundle branch block Abnormal ECG When compared with ECG of 20-SEP-2019 10:23, No significant change was found Confirmed by Aleksey Au ([id number]) on 02/18/2021 5:16:00 PM Referred By: [facility] Confirmed By:Vladimir Au
[2021-02-18] MEDS ORDERED: ACETAMINOPHEN 325 MG TAB PO PRN (19:11)
[2021-02-18] MEDS ORDERED: LORazepam 1 MG TAB PO PRN (19:30)
[2021-02-18] MEDS: cefTRIAXone SODIUM 2,000 MG in DEXTROSE 5% 50 ML IV SCH (20:17)
[2021-02-18] MEDS: DOXYCYCLINE HYCLATE 100 MG in DEXTROSE 5% 100 ML IV SCH (21:06)
[2021-02-18] MEDS: ENOXAPARIN INJ 40 MG/0.4 ML SYR SQ SCH (21:06)
[2021-02-19 07:48] LABS: Hematocrit (blood only) 38.5 % (37-47); Hemoglobin 12.6 g/dL (12.0-16.0); Mean Corpuscular Hemoglobin 31.5 pg (25-34); Mean Corpuscular Hgb Conc 32.7 g/dL (32-36); Mean Corpuscular Volume 96.3 fL (80-100); Mean Platelet Volume 10.9 fL (7.4-10.4); Platelet Count 269 K/uL (130-400); RDW Standard Deviation 49.5 fL (36.4-46.3)
[2021-02-19] MEDS: ASPIRIN 81 MG ECTAB PO SCH (08:06)
[2021-02-19] MEDS: LOSARTAN POTASSIUM 50 MG TAB PO SCH (08:07)
[2021-02-19] MEDS: DONEPEZIL HCL 5 MG TAB PO SCH (08:07)
[2021-02-19] MEDS: MEMANTINE HCL 5 MG TAB PO SCH (08:07)
[2021-02-19] MEDS: DOXYCYCLINE HYCLATE 100 MG in DEXTROSE 5% 100 ML IV SCH ×2 (08:12→21:04)
[2021-02-19 08:25] LABS: BUN Creatinine Ratio 24.6 (10-20); Calcium 9.1 mg/dl (8.5-10.1); Creatinine Clr Calc Pharmacy 62.2 ml/min; Est GFR (African American) 90.7 ml/min; Est GFR (Non-African American) 78.3 ml/min; Potassium 3.9 mmol/L (3.5-5.1)
--- NOTE | 2021-02-19 11:08 | Hospitalist Progress Note ---
Date of Service February 19, 2021 Assessment & Plan (1) Bilateral cellulitis of lower leg: -Admit to [facility] -Patient presenting from [facility] for evaluation of bilateral lower extremity erythema and edema -Was being treated with cephalexin -In the ED, afebrile, no leukocytosis -BL LE Doppler negative for DVT -S/p ceftriaxone in the ED, will continue with ceftriaxone and add doxycycline -Follow blood cultures Erythema much improved from previous exam yesterday, continue IV antibiotics and follow blood cultures (2) HTN (hypertension): -BP controlled, continue losartan (3) Dementia: -Continue donepezil and memantine (4) DVT prophylaxis: -SQ Lovenox Admission and Anticipated Discharge Date Admission Date: February 18, 2021 Subjective Patient seen in follow-up of lower extremities cellulitis Currently sitting up in bed, in mild distress as she keeps repeating that she needs to go to the bathroom No chest pain, shortness of breath, no fevers or chills no abdominal pain nausea or vomiting Lower extremities improved Review of Systems Review of Systems: All systems reviewed & are unremarkable except as noted in HPI & below Constitutional: no fever and no chills Respiratory: no cough and no dyspnea Cardiovascular: no chest pain and no palpitations Gastrointestinal: no abdominal pain, no nausea and no vomiting Physical Exam Physical Exam: Constitutional: WD/WN, elderly F in NAD Eyes: PERRL, EOMI, conjunctivae normal, anicteric sclerae ENMT: external ear and nose normal, oropharynx normal Respiratory: normal respiratory effort, lungs clear to auscultation Cardiovascular: Rate/Rhythm: regular rate and regular rhythm Vessels: normal peripheral pulses Extremities: + edema (+1-2 edema BLE) Gastrointestinal (Abdomen): normal bowel sounds, soft, nontender Musculoskeletal: extremities motor strength 5/5 Skin: warm and dry BL LE erythematous ( improved from previous exam) and warm to the touch. Some scattered, dried abrasions noted bilaterally Neurologic: PERRL, EOMI, no face palsy, no dysarthria, moves extremities Psychiatric: Orientation: alert and oriented to person; + not oriented to place and + not oriented to time Insight: + limited insight (d/t dementia) Results & Data Results & Data ([facility]) Vital Signs (Past 12 Hours) Vital Signs Temp Pulse Resp BP Pulse Ox 02/19/21 08:23 36.8 C 64 18 161/74 H 93 Laboratory Results 02/19/21 02/19/21 02/18/21 Range/Units 07:20 07:20 Unknown WBC 5.70 (4.8-10.8) K/uL RBC 4.00 L (4.2-5.4) M/uL Hgb 12.6 (12.0-16.0) g/dL Hct 38.5 (37-47) % MCV 96.3 (80-100) fL MCH 31.5 (25-34) pg MCHC 32.7 (32-36) g/dL RDW Std Deviation 49.5 H (36.4-46.3) fL RDW Coeff of Torri 14.0 (11.5-14.5) % Plt Count 269 (130-400) K/uL MPV 10.9 H (7.4-10.4) fL Immature Gran % (Auto) % Neut % (Auto) % Lymph % (Auto) % [place] % (Auto) % Eos % (Auto) % Baso % (Auto) % Neut # (Auto) (1.4-6.5) K/uL Lymph # (Auto) (1.2-3.4) K/uL [place] # (Auto) (0.11-0.59) K/uL Eos # (Auto) (0-0.5) K/uL Baso # (Auto) (0-0.2) K/uL Immature Gran # (Auto) (0.00-0.02) K/uL PT INR APTT PTT Ratio Sodium 143 (136-145) mmol/L Potassium 3.9 (3.5-5.1) mmol/L Chloride 112 H (98-107) mmol/L Carbon Dioxide 25 (21-32) mmol/L Anion Gap 6.0 (3-11) BUN 17 (7-18) mg/dl Creatinine 0.69 (0.6-1.2) mg/dl Est Cr Clr Drug Dosing 62.2 ml/min Est GFR ( Amer) 90.7 ml/min Est GFR (Non-Af Amer) 78.3 ml/min BUN/Creatinine Ratio 24.6 H (10-20) Glucose 87 (70-99) mg/dl Lactate (0.4-2.0) mmol/L Calcium 9.1 (8.5-10.1) mg/dl Magnesium (1.8-2.4) mg/dl Total Bilirubin (0.2-1) mg/dl AST (15-37) U/L ALT (12-78) U/L Alkaline Phosphatase (45-117) U/L Troponin I (0-0.045) ng/ml NT-Pro-B Natriuret Pep (0-1800) pg/ml Total Protein (6.4-8.2) gm/dl Albumin (3.4-5.0) gm/dl Globulin (2.5-4.0) gm/dl Albumin/Globulin Ratio (0.9-2) Urine Color Urine Appearance (Clear) Urine pH (4.5-7.5) Ur Specific [place] (1.000-1.030) Urine Protein (Negative) Urine Glucose (UA) (Negative) Urine Ketones (Negative) Urine Blood (Negative) Urine Nitrite (Negative) Urine Bilirubin (Negative) Urine Urobilinogen (Negative) Ur Leukocyte Esterase (Negative) Nasal Screen MRSA (PCR) Negative (Negative) COVID-19 Eval Order SARS-CoV-2 (PCR) (Negative) 02/18/21 02/18/21 02/18/21 Range/Units 15:15 15:15 13:27 WBC (4.8-10.8) K/uL RBC (4.2-5.4) M/uL Hgb (12.0-16.0) g/dL Hct (37-47) % MCV (80-100) fL MCH (25-34) pg MCHC (32-36) g/dL RDW Std Deviation (36.4-46.3) fL RDW Coeff of Torri (11.5-14.5) % Plt Count (130-400) K/uL MPV (7.4-10.4) fL Immature Gran % (Auto) % Neut % (Auto) % Lymph % (Auto) % [place] % (Auto) % Eos % (Auto) % Baso % (Auto) % Neut # (Auto) (1.4-6.5) K/uL Lymph # (Auto) (1.2-3.4) K/uL [place] # (Auto) (0.11-0.59) K/uL Eos # (Auto) (0-0.5) K/uL Baso # (Auto) (0-0.2) K/uL Immature Gran # (Auto) (0.00-0.02) K/uL PT INR APTT PTT Ratio Sodium (136-145) mmol/L Potassium 4.0 (3.5-5.1) mmol/L Chloride (98-107) mmol/L Carbon Dioxide (21-32) mmol/L Anion Gap (3-11) BUN (7-18) mg/dl Creatinine (0.6-1.2) mg/dl Est Cr Clr Drug Dosing ml/min Est GFR ( Amer) ml/min Est GFR (Non-Af Amer) ml/min BUN/Creatinine Ratio (10-20) Glucose (70-99) mg/dl Lactate (0.4-2.0) mmol/L Calcium (8.5-10.1) mg/dl Magnesium 2.3 (1.8-2.4) mg/dl Total Bilirubin (0.2-1) mg/dl AST 15 (15-37) U/L ALT (12-78) U/L Alkaline Phosphatase (45-117) U/L Troponin I (0-0.045) ng/ml NT-Pro-B Natriuret Pep (0-1800) pg/ml Total Protein (6.4-8.2) gm/dl Albumin (3.4-5.0) gm/dl Globulin (2.5-4.0) gm/dl Albumin/Globulin Ratio (0.9-2) Urine Color Urine Appearance (Clear) Urine pH (4.5-7.5) Ur Specific [place] (1.000-1.030) Urine Protein (Negative) Urine Glucose (UA) (Negative) Urine Ketones (Negative) Urine Blood (Negative) Urine Nitrite (Negative) Urine Bilirubin (Negative) Urine Urobilinogen (Negative) Ur Leukocyte Esterase (Negative) Nasal Screen MRSA (PCR) (Negative) COVID-19 Eval Order Covid19 at [facility] SARS-CoV-2 (PCR) NEGATIVE (Negative) 02/18/21 02/18/21 02/18/21 Range/Units 13:26 13:26 12:27 WBC (4.8-10.8) K/uL RBC (4.2-5.4) M/uL Hgb (12.0-16.0) g/dL Hct (37-47) % MCV (80-100) fL MCH (25-34) pg MCHC (32-36) g/dL RDW Std Deviation (36.4-46.3) fL RDW Coeff of Torri (11.5-14.5) % Plt Count (130-400) K/uL MPV (7.4-10.4) fL Immature Gran % (Auto) % Neut % (Auto) % Lymph % (Auto) % [place] % (Auto) % Eos % (Auto) % Baso % (Auto) % Neut # (Auto) (1.4-6.5) K/uL Lymph # (Auto) (1.2-3.4) K/uL [place] # (Auto) (0.11-0.59) K/uL Eos # (Auto) (0-0.5) K/uL Baso # (Auto) (0-0.2) K/uL Immature Gran # (Auto) (0.00-0.02) K/uL PT 10.3 INR 1.0 APTT 24.8 PTT Ratio 0.9 Sodium (136-145) mmol/L Potassium (3.5-5.1) mmol/L Chloride (98-107) mmol/L Carbon Dioxide (21-32) mmol/L Anion Gap (3-11) BUN (7-18) mg/dl Creatinine (0.6-1.2) mg/dl Est Cr Clr Drug Dosing ml/min Est GFR ( Amer) ml/min Est GFR (Non-Af Amer) ml/min BUN/Creatinine Ratio (10-20) Glucose (70-99) mg/dl Lactate 1.5 (0.4-2.0) mmol/L Calcium (8.5-10.1) mg/dl Magnesium (1.8-2.4) mg/dl Total Bilirubin (0.2-1) mg/dl AST (15-37) U/L ALT (12-78) U/L Alkaline Phosphatase (45-117) U/L Troponin I (0-0.045) ng/ml NT-Pro-B Natriuret Pep (0-1800) pg/ml Total Protein (6.4-8.2) gm/dl Albumin (3.4-5.0) gm/dl Globulin (2.5-4.0) gm/dl Albumin/Globulin Ratio (0.9-2) Urine Color Yellow Urine Appearance Clear (Clear) Urine pH 6.5 (4.5-7.5) Ur Specific [place] 1.011 (1.000-1.030) Urine Protein Negative (Negative) Urine Glucose (UA) Negative (Negative) Urine Ketones Negative (Negative) Urine Blood Negative (Negative) Urine Nitrite Negative (Negative) Urine Bilirubin Negative (Negative) Urine Urobilinogen Negative (Negative) Ur Leukocyte Esterase Negative (Negative) Nasal Screen MRSA (PCR) (Negative) COVID-19 Eval Order SARS-CoV-2 (PCR) (Negative) 02/18/21 02/18/21 02/18/21 Range/Units 12:27 12:27 12:27 WBC 7.17 (4.8-10.8) K/uL RBC 4.27 (4.2-5.4) M/uL Hgb 13.4 (12.0-16.0) g/dL Hct 41.8 (37-47) % MCV 97.9 (80-100) fL MCH 31.4 (25-34) pg MCHC 32.1 (32-36) g/dL RDW Std Deviation 51.1 H (36.4-46.3) fL RDW Coeff of Torri 14.3 (11.5-14.5) % Plt Count 242 (130-400) K/uL MPV 10.9 H (7.4-10.4) fL Immature Gran % (Auto) 0.3 % Neut % (Auto) 57.2 % Lymph % (Auto) 31.5 % [place] % (Auto) 8.1 % Eos % (Auto) 2.5 % Baso % (Auto) 0.4 % Neut # (Auto) 4.10 (1.4-6.5) K/uL Lymph # (Auto) 2.26 (1.2-3.4) K/uL [place] # (Auto) 0.58 (0.11-0.59) K/uL Eos # (Auto) 0.18 (0-0.5) K/uL Baso # (Auto) 0.03 (0-0.2) K/uL Immature Gran # (Auto) 0.02 (0.00-0.02) K/uL PT Cancelled INR Cancelled APTT Cancelled PTT Ratio Cancelled Sodium 142 (136-145) mmol/L Potassium (3.5-5.1) mmol/L Chloride 110 H (98-107) mmol/L Carbon Dioxide 26 (21-32) mmol/L Anion Gap 5.0 (3-11) BUN 20 H (7-18) mg/dl Creatinine 0.82 (0.6-1.2) mg/dl Est Cr Clr Drug Dosing 52.3 ml/min Est GFR ( Amer) 74.6 ml/min Est GFR (Non-Af Amer) 64.3 ml/min BUN/Creatinine Ratio 24.5 H (10-20) Glucose 95 (70-99) mg/dl Lactate (0.4-2.0) mmol/L Calcium 8.8 (8.5-10.1) mg/dl Magnesium (1.8-2.4) mg/dl Total Bilirubin 0.4 (0.2-1) mg/dl AST (15-37) U/L ALT 22 (12-78) U/L Alkaline Phosphatase 88 (45-117) U/L Troponin I < 0.015 (0-0.045) ng/ml NT-Pro-B Natriuret Pep 156 (0-1800) pg/ml Total Protein 7.4 (6.4-8.2) gm/dl Albumin 3.0 L (3.4-5.0) gm/dl Globulin 4.4 H (2.5-4.0) gm/dl Albumin/Globulin Ratio 0.7 L (0.9-2) Urine Color Urine Appearance (Clear) Urine pH (4.5-7.5) Ur Specific [place] (1.000-1.030) Urine Protein (Negative) Urine Glucose (UA) (Negative) Urine Ketones (Negative) Urine Blood (Negative) Urine Nitrite (Negative) Urine Bilirubin (Negative) Urine Urobilinogen (Negative) Ur Leukocyte Esterase (Negative) Nasal Screen MRSA (PCR) (Negative) COVID-19 Eval Order SARS-CoV-2 (PCR) (Negative) Medications Administered Current Inpatient Medications Acetaminophen (Acetaminophen 325 Mg Tab) 650 mg PO Q4H PRN PRN Reason: pain/fever Stop: 03/20/21 19:10 Aspirin (Aspirin 81 Mg Ectab) 81 mg PO QAM [facility] Stop: 03/21/21 08:59 Last Admin: 02/19/21 08:06 Dose: 81 mg Documented by: Donepezil HCl (Donepezil Hcl 5 Mg Tab) 5 mg PO QAM [facility] Stop: 03/21/21 08:59 Last Admin: 02/19/21 08:07 Dose: 5 mg Documented by: Enoxaparin Sodium (Enoxaparin Inj 40 Mg/0.4 Ml Syr) 40 mg SQ Q24H [facility] Stop: 03/20/21 20:59 Last Admin: 02/18/21 21:06 Dose: 40 mg Documented by: Ceftriaxone Sodium 2,000 mg/ (Dextrose) 70 mls @ 100 mls/hr IV Q24H [facility]; Protocol Stop: 02/25/21 19:29 Last Infusion: 02/18/21 22:01 Dose: Infused Documented by: Doxycycline Hyclate 100 mg/ (Dextrose) 110 mls @ 50 mls/hr IV Q12H [facility] Stop: 02/25/21 19:59 Last Infusion: 02/19/21 10:24 Dose: Infused Documented by: Lorazepam (Lorazepam 1 Mg Tab) 1 mg PO Q6H PRN PRN Reason: anxiety Stop: 03/20/21 19:29 Losartan Potassium (Losartan Potassium 50 Mg Tab) [facility] Stop: 03/21/21 08:59 Last Admin: 02/19/21 08:07 Dose: 50 mg Documented by: Memantine (Memantine Hcl 5 Mg Tab) 5 mg PO QAM [facility] Stop: 03/21/21 08:59 Last Admin: 02/19/21 08:07 Dose: 5 mg Documented by: (1) Dementia Dementia behavioral disturbance: without behavioral disturbance Dementia type: unspecified type Qualified Code(s): F03.90 - Unspecified dementia without behavioral disturbance
[2021-02-19] MEDS: ENOXAPARIN INJ 40 MG/0.4 ML SYR SQ SCH (21:01)
[2021-02-19] MEDS: cefTRIAXone SODIUM 2,000 MG in DEXTROSE 5% 50 ML IV SCH (21:04)
[2021-02-20 07:21] LABS: Hematocrit (blood only) 39.1 % (37-47); Hemoglobin 12.6 g/dL (12.0-16.0); Mean Corpuscular Hemoglobin 31.5 pg (25-34); Mean Corpuscular Hgb Conc 32.2 g/dL (32-36); Mean Corpuscular Volume 97.8 fL (80-100); Mean Platelet Volume 11.2 fL (7.4-10.4); Platelet Count 284 K/uL (130-400); RDW Standard Deviation 50.2 fL (36.4-46.3); White Blood Count 6.47 K/uL (4.8-10.8)
[2021-02-20 07:57] LABS: BUN Creatinine Ratio 25.6 (10-20); Calcium 8.7 mg/dl (8.5-10.1); Creatinine Clr Calc Pharmacy 55.7 ml/min; Est GFR (African American) 80.5 ml/min; Est GFR (Non-African American) 69.4 ml/min; Magnesium 2.1 mg/dl (1.8-2.4); Potassium 3.7 mmol/L (3.5-5.1)
[2021-02-20 07:58] LABS: Phosphorus 3.1 mg/dl (2.5-4.9)
[2021-02-20] MEDS: LOSARTAN POTASSIUM 50 MG TAB PO SCH (08:11)
[2021-02-20] MEDS: MEMANTINE HCL 5 MG TAB PO SCH (08:11)
[2021-02-20] MEDS: ASPIRIN 81 MG ECTAB PO SCH (08:11)
[2021-02-20] MEDS: DONEPEZIL HCL 5 MG TAB PO SCH (08:11)
[2021-02-20] MEDS: DOXYCYCLINE HYCLATE 100 MG in DEXTROSE 5% 100 ML IV SCH ×2 (08:13→19:31)
[2021-02-20] MEDS: cefTRIAXone SODIUM 2,000 MG in DEXTROSE 5% 50 ML IV SCH (18:11)
--- NOTE | 2021-02-20 19:21 | Hospitalist Progress Note ---
Date of Service February 20, 2021 Assessment & Plan (1) Bilateral cellulitis of lower leg: Bilateral leg cellulitis Chronic venous stasis changes Venous Doppler:No evidence of deep venous thrombosis. Failed outpatient cephalexin Continue Rocephin, doxycycline Blood cultures negative to date (2) HTN (hypertension): continue losartan (3) Dementia: Continue donepezil and memantine (4) DVT prophylaxis: SQ Lovenox Admission and Anticipated Discharge Date Admission Date: February 19, 2021 Subjective Patient is seen and examined at bedside Denies any leg pain Leg swelling, erythema improving Offers no other complaints Denies chest pain, shortness of breath, dizziness, nausea, abdominal pain Review of Systems Review of Systems: All systems reviewed & are unremarkable except as noted in HPI & below Physical Exam Physical Exam: Physical Exam: Vitals signs as noted above General Appearance:Moderately built and nourished, no apparent distress Head: normocephalic, Atraumatic Eyes: normal inspection, EOMI Neck: supple, Trachea midline Respiratory/Chest: Normal breath sounds, Basal Crackles Cardiovascular: S1, S2, No murmur Abdomen/GI:Soft, Non tender, Bowel sounds present Extremities/Musculoskeletal:normal inspection, chronic venous stasis changes, erythema, trace edema Neurologic/Psych:AAOX3, grossly no focal neurological deficits, + hearing aids Skin: normal color, warm Results & Data Results & Data ([facility]) Vital Signs (Past 12 Hours) Vital Signs Temp Pulse Resp BP Pulse Ox 02/20/21 16:26 36.6 C 73 18 131/78 90 02/20/21 08:35 36.6 C 66 18 153/83 H 93 Laboratory Results Short CBC 02/20/21 Range/Units 06:52 WBC 6.47 (4.8-10.8) K/uL Hgb 12.6 (12.0-16.0) g/dL Hct 39.1 (37-47) % Plt Count 284 (130-400) K/uL BMP 02/20/21 06:52 Sodium 142 Potassium 3.7 Chloride 112 H Carbon Dioxide 24 BUN 20 H Creatinine 0.77 Glucose 100 H Calcium 8.7 (1) Dementia Dementia behavioral disturbance: without behavioral disturbance Dementia type: unspecified type Qualified Code(s): F03.90 - Unspecified dementia without behavioral disturbance
[2021-02-20] MEDS: ENOXAPARIN INJ 40 MG/0.4 ML SYR SQ SCH (19:31)
[2021-02-21 07:21] LABS: BUN Creatinine Ratio 28.2 (10-20); Calcium 8.7 mg/dl (8.5-10.1); Est GFR (African American) 84.4 ml/min; Est GFR (Non-African American) 72.8 ml/min; Magnesium 2.1 mg/dl (1.8-2.4)
[2021-02-21] MEDS: ASPIRIN 81 MG ECTAB PO SCH (07:54)
[2021-02-21] MEDS: DONEPEZIL HCL 5 MG TAB PO SCH (07:54)
[2021-02-21] MEDS: MEMANTINE HCL 5 MG TAB PO SCH (07:54)
[2021-02-21] MEDS: LOSARTAN POTASSIUM 50 MG TAB PO SCH (07:54)
[2021-02-21] MEDS: DOXYCYCLINE HYCLATE 100 MG in DEXTROSE 5% 100 ML IV SCH (08:25)
[2021-02-21] MEDS: DOXYCYCLINE HYCLATE 100 MG CAP PO SCH ×2 (09:17→20:28)
[2021-02-21] MEDS: CEFDINIR 300 MG CAP PO SCH ×2 (09:17→20:28)
--- NOTE | 2021-02-21 16:37 | Hospitalist Progress Note ---
Date of Service February 21, 2021 Assessment & Plan (1) Bilateral cellulitis of lower leg: Bilateral leg cellulitis Chronic venous stasis changes Failed outpatient cephalexin treatment Venous Doppler:No evidence of deep venous thrombosis. Blood cultures negative to date Continue IV Rocephin, doxycycline>> transition to p.o. doxycycline, cefdinir (2) HTN (hypertension): continue losartan (3) Dementia: Continue donepezil and memantine (4) DVT prophylaxis: SQ Lovenox Admission and Anticipated Discharge Date Admission Date: February 19, 2021 Subjective Patient is seen and examined at bedside Doing well today Leg erythema continues to improve Denies any leg pain, chest pain, dyspnea, dizziness, nausea, abdominal pain Review of Systems Review of Systems: All systems reviewed & are unremarkable except as noted in HPI & below Physical Exam Physical Exam: Physical Exam: Vitals signs as noted above General Appearance:Moderately built and nourished, no apparent distress Head: normocephalic, Atraumatic Eyes: normal inspection, EOMI Neck: supple, Trachea midline Respiratory/Chest: Normal breath sounds, Basal Crackles Cardiovascular: S1, S2, No murmur Abdomen/GI:Soft, Non tender, Bowel sounds present Extremities/Musculoskeletal:normal inspection, chronic venous stasis changes, erythema, trace edema Neurologic/Psych:AAOX3, grossly no focal neurological deficits, + hearing aids Skin: normal color, warm Results & Data Results & Data ([facility]) Vital Signs (Past 12 Hours) Vital Signs Temp Pulse Resp BP Pulse Ox 02/21/21 15:08 36.2 C L 74 16 146/73 H 91 02/21/21 06:43 36.6 C 67 18 146/77 H 91 Laboratory Results [facility] 02/21/21 06:26 Sodium 142 Potassium 4.0 Chloride 111 H Carbon Dioxide 23 BUN 21 H Creatinine 0.74 Glucose 92 Calcium 8.7 (1) Dementia Dementia behavioral disturbance: without behavioral disturbance Dementia type: unspecified type Qualified Code(s): F03.90 - Unspecified dementia without behavioral disturbance
[2021-02-21] MEDS: ENOXAPARIN INJ 40 MG/0.4 ML SYR SQ SCH (19:37)
[2021-02-22] MEDS: DONEPEZIL HCL 5 MG TAB PO SCH (07:32)
[2021-02-22] MEDS: LOSARTAN POTASSIUM 50 MG TAB PO SCH (07:32)
[2021-02-22] MEDS: DOXYCYCLINE HYCLATE 100 MG CAP PO SCH (07:32)
[2021-02-22] MEDS: ASPIRIN 81 MG ECTAB PO SCH (07:32)
[2021-02-22] MEDS: CEFDINIR 300 MG CAP PO SCH (07:32)
[2021-02-22] MEDS: MEMANTINE HCL 5 MG TAB PO SCH (07:33)
--- NOTE | 2021-02-22 07:58 | Hospitalist Progress Note ---
Date of Service February 22, 2021 Assessment & Plan (1) Bilateral cellulitis of lower leg: Bilateral leg cellulitis Chronic venous stasis changes Failed outpatient cephalexin treatment Venous Doppler:No evidence of deep venous thrombosis. Blood cultures negative to date Continue IV Rocephin, doxycycline>> transition to p.o. doxycycline, cefdinir Continue current medications (2) HTN (hypertension): continue losartan (3) Dementia: Continue donepezil and memantine (4) DVT prophylaxis: SQ Lovenox Admission and Anticipated Discharge Date Admission Date: February 19, 2021 Subjective Patient is seen and examined at bedside No new complaints Leg erythema much improved Denies any leg pain, chest pain, dyspnea, dizziness, nausea, abdominal pain " I am happy to get discharged " Review of Systems Review of Systems: All systems reviewed & are unremarkable except as noted in HPI & below Physical Exam Physical Exam: Physical Exam: Vitals signs as noted above General Appearance:Moderately built and nourished, no apparent distress Head: normocephalic, Atraumatic Eyes: normal inspection, EOMI Neck: supple, Trachea midline Respiratory/Chest: Normal breath sounds, Basal Crackles Cardiovascular: S1, S2, No murmur Abdomen/GI:Soft, Non tender, Bowel sounds present Extremities/Musculoskeletal:normal inspection, chronic venous stasis changes, erythema, trace edema much improved Neurologic/Psych:AAOX3, grossly no focal neurological deficits, + hearing aids Skin: normal color, warm Results & Data Results & Data ([facility]) Vital Signs (Past 12 Hours) Vital Signs Temp Pulse Resp BP Pulse Ox 02/22/21 07:12 36.4 C L 70 16 148/71 H 92 02/22/21 06:48 36.9 C 75 16 126/79 92 02/21/21 22:08 36.9 C 75 16 126/79 92 (1) Dementia Dementia behavioral disturbance: without behavioral disturbance Dementia type: unspecified type Qualified Code(s): F03.90 - Unspecified dementia without behavioral disturbance
--- NOTE | 2021-02-22 08:01 | Discharge Summary ---
Date of Service February 22, 2021 Admission HPI Per Admitting Provider 86-year-old female with PMH HTN, dementia, and other problems listed below who presents the ED from [facility] for evaluation of bilateral lower extremity redness and swelling. Patient has underlying dementia therefore history is limited from her. Per the staff at [facility], 4 days ago, patient developed redness and swelling to the left lower extremity. She was started on cephalexin. Left lower extremity redness and swelling has been getting worse and today staff noted redness and swelling to the right lower extremity. No reported fevers. No known injury or trauma to the legs. No other symptoms reported. In the ED, patient is hemodynamically stable, afebrile, no leukocytosis. BL LE Doppler negative for DVT. Patient was given IV ceftriaxone. Admission Exam Per Admitting Provider Physical Exam Constitutional: WD/WN, vitals as above Eyes: PERRL, conjunctivae normal, anicteric sclerae ENMT: external ear and nose normal, oropharynx normal Respiratory: normal respiratory effort, lungs clear to auscultation Cardiovascular: Rate/Rhythm: regular rate and regular rhythm Vessels: normal peripheral pulses Extremities: + edema (+2 edema BLE) Gastrointestinal (Abdomen): normal bowel sounds, soft, nontender, no hepatosplenomegaly Musculoskeletal: no cyanosis or clubbing, extremities motor strength 5/5 Skin: no rashes, warm and dry BL LE erythematous and very warm to the touch. Some scattered, dried abrasions noted bilaterally Neurologic: PERRL, EOMI, accommodation nl, no face palsy, no dysarthria Psychiatric: Orientation: alert and oriented to person; + not oriented to place and + not oriented to time Insight: + limited insight Principal Diagnosis Bilateral leg cellulitis Chronic venous stasis Discharge Data Allergies Allergy/AdvReac Type Severity Reaction Status Date / Time Sulfa (Sulfonamide Allergy Mild HIVES, Verified 02/18/21 13:12 Antibiotics) INTESTINAL PAIN alendronate sodium Allergy Unknown Verified 02/18/21 13:12 atorvastatin Allergy Unknown Verified 02/18/21 13:12 clarithromycin Allergy Unknown Verified 02/18/21 13:12 colesevelam Allergy Unknown Verified 02/18/21 13:12 ezetimibe Allergy Unknown Verified 02/18/21 13:12 gemfibrozil Allergy Unknown Verified 02/18/21 13:12 levofloxacin Allergy Unknown HIVES Verified 02/18/21 13:12 lisinopril Allergy Unknown Verified 02/18/21 13:12 Quinolones Allergy Unknown Verified 02/18/21 13:12 risedronate sodium Allergy Unknown Verified 02/18/21 13:12 simvastatin Allergy Unknown Verified 02/18/21 13:12 Consultations 02/18/21 14:19 ED Decision to Admit Stat Procedures Performed Venous Doppler:No evidence of deep venous thrombosis. Ordered Studies 02/18/21 14:19 US venous doppler LE Stat Hospital Course (1) Bilateral cellulitis of lower leg: Bilateral leg cellulitis Chronic venous stasis changes Failed outpatient cephalexin treatment Venous Doppler:No evidence of deep venous thrombosis. Blood cultures negative to date Continue IV Rocephin, doxycycline>> transition to p.o. doxycycline, cefdinir Continue current medications (2) HTN (hypertension): continue losartan (3) Dementia: Continue donepezil and memantine (4) DVT prophylaxis: SQ Lovenox Total Time Total Time Spent Total Time Spent (In Minutes): 40 minutes Total Time Includes: Examination of the Patient, Discharge Planning, Medication Reconciliation, Communication With Other Providers and Other Discharge Plan Discharge Items Patient Disposition: Personal Custodial Reason For Visit: cellulitis Discharge Diagnosis: Bilateral leg cellulitis Chronic venous stasis Activity: Per Instructions section Exercise/Sports: Gradually increase as tolerated Non-emergency contact: Primary Care Provider Call non-emergency contact if: you have any medication questions, your symptoms worsen, your pain is not controlled, your pain is worsening, your pain is concerning for you, you have a fever, your wound has increased redness, your wound has increased drainage and your wound pain has increased Follow-up/Referrals: STATE SANG CHATTERJEE [Primary Care Provider] - Diet: Heart Healthy Addtl Attending Provider Instructions: Follow-up with your primary care physician in 1 week. Complete the antibiotic course Omnicef, doxycycline as prescribed. Seek immediate medical attention if your symptoms reoccur or worsen Please take all medications as instructed on discharge list below. Please call if you have any questions or problems. You can reach a [facility] hospitalist on duty at [facility] 24 hours a day by calling [phone] Pending Studies at Discharge: Yes Studies:: Blood cultures Stand-Alone Forms: My [facility] [employer], Smoking Cessation Skilled Items Patient informed of condition?: Yes DNR: No Discharge Level of Care: Other Communicable Disease: No Discharge Prognosis: Stable Lines: None Urinary Catheter: No Medications and DC Order Prescriptions: New doxycycline hyclate 100 mg Capsule 100 mg PO BID Qty: 10 RF: 0 cefdinir 300 mg Capsule 300 mg PO BID Qty: 10 RF: 0 Continued losartan 50 mg Tablet 50 mg PO QAM RF: 0 donepezil [Aricept] 5 mg Tablet 5 mg PO QAM RF: 0 aspirin 81 mg Tablet,Delayed Release (Dr/Ec) 81 mg PO QAM RF: 0 memantine [Namenda] 5 mg Tablet 5 mg PO QAM RF: 0 loperamide [Anti-Diarrheal (loperamide)] 2 mg Tablet 2 mg PO Q4H PRN (Reason: Diarrhea) RF: 0 lorazepam 1 mg Tablet 1 mg PO Q6H PRN (Reason: anxiety) RF: 0 Discontinued cephalexin [Keflex] 250 mg Capsule 250 mg PO TID RF: 0 Discharge Orders: Discharge Order (Routine); Ordered 02/22/21 Ordered By: Viraj Johnson Admission Data Admit Date/Time: 02/19/21 11:19 Attending Provider: Viraj Johnson Admit Provider: Cristopher Shi Primary Care Provider: [facility] S[facility] CHATTERJEE Other Providers: Cristopher Shi Other Interventions: Discharge Summary Assessment (RN) Last Done: 02/22/21 06:48
== END 2021-02-22 10:25 | disposition home or self-care (01) ==
LOC: 3W 11:29 → ED 11:29 → 3W 18:19 → SUATTDRO 02-19 11:19